=== PATIENT | female | born 1950 | race Caucasian/White ===

== ENCOUNTER → 2017-02-15 | Outpatient (CLI) | payer BC ==
[~2017-02-15] MED LIST: ALBU1AER9 INH; ASPI-435 PO; B-COTAB18 PO; COEN100C11 PO; DIPH25CA37 PO; ESTCR PV; ESTR1TAB2 PO; FLNIN/ NAE; MAGN-22 PO; MULT-506 PO; OMEP20CA9 PO; VITA1CAP59 PO; [UNRECOGNIZED DRUG - OTHER] PO
== END | disposition home or self-care (01) ==
LOC: C.PAPS 15:31
PROVIDERS: ATTEND Obstetrics & Gynecology
DX: Z01.411 Encounter for gynecological examination (general) (routine) with abnormal findings (principal); N95.2 Postmenopausal atrophic vaginitis

== ENCOUNTER → 2018-02-19 | Outpatient (CLI) | payer OTHER, BC | END | disposition home or self-care (01) | LOC: C.PAPS 11:31 | PROVIDERS: ATTEND Obstetrics & Gynecology | DX: Z01.419 Encounter for gynecological examination (general) (routine) without abnormal findings (principal) ==